=== PATIENT | male | born 1980 | race Caucasian/White ===

== ENCOUNTER 2018-09-06 14:07 | Day surgery (SDC) | payer OTHER ==
[~2018-09-06 14:07] MED LIST: CEFAZOLIN 1 GM INJ; DESFLURANE 15 MIN; DEXAMETHASONE 4 MG/ML 5 ML INJ; PROPOFOL 200 MG INJ; ROCURONIUM BROMIDE 10 MG/ML VIAL
[2018-09-06] MEDS: LACTATED RINGER'S 1,000 ML IV (15:15)
[2018-09-06] MEDS ORDERED: HYDROmorphONE 1 MG/5 ML IV SYRINGE IV ×2 (17:00)
[2018-09-06] MEDS ORDERED: DIPHENHYDRAMINE 50 MG INJ IV (17:00)
[2018-09-06] MEDS ORDERED: LIDOCAINE 1% (MDV) 20 ML INJ (17:29)
[2018-09-06] MEDS ORDERED: MIDAZOLAM 1 MG/ML 2 ML INJ (17:29)
[2018-09-06] MEDS ORDERED: SUGAMMADEX SODIUM 200 MG/2 ML VIAL IV (17:55)
[2018-09-06] MEDS: ONDANSETRON 4 MG INJ IV (18:30)
[2018-09-06] MEDS: OXYCODONE/ACETAMINOPHEN (5/325) TAB PO (18:30)
[2018-09-06] MEDS: HYDROmorphONE 1 MG/5 ML IV SYRINGE IV (18:54)
[2018-09-06] MEDS: MEPERIDINE 25 MG INJ IV (19:02)
== END 2018-09-06 20:00 | disposition home or self-care (01) ==
LOC: SDS 14:07
DX: J35.01 Chronic tonsillitis (principal)
CPT/HCPCS: 42826; 88304